=== PATIENT | female | born 2000 | race Two or more races ===

== ENCOUNTER 2020-06-06 11:17 | Emergency (ER) | payer MEDICAID, OTHER ==
[~2020-06-06] VITALS: Ht 165.1 cm; Wt 67.1 kg
[2020-06-06 12:00] VITALS: BP 131/72
== END 2020-06-06 12:18 | disposition home or self-care (01) ==
LOC: ER 11:17
DX: L03.116 Cellulitis of left lower limb (principal)

== ENCOUNTER 2023-09-09 19:04 | Emergency (ER) | payer MEDICAID, OTHER ==
[~2023-09-09] VITALS: Ht 165.1 cm; Wt 61.0 kg
[2023-09-09 22:14] VITALS: BP 117/59; PULSE 62; RESP 16; TEMP 97.5
[2023-09-10] MEDS ORDERED: CEPH500C PO (00:39)
[2023-09-10] MEDS ORDERED: TETANUS-DIPTH-ACEL PERTUSSIS 0.5ML SYR Tdap IM ONE (00:45)
[2023-09-10 01:50] VITALS: O2SAT 98
== END 2023-09-10 02:23 | disposition home or self-care (01) ==
LOC: ER 19:04
DX: S60.416A Abrasion of right little finger, initial encounter (principal); Z79.899 Other long term (current) drug therapy; W22.8XXA Striking against or struck by other objects, initial encounter; Y93.89 Activity, other specified; Y92.89 Other specified places as the place of occurrence of the external cause; Y99.8 Other external cause status
CPT/HCPCS: 90471; 90715